=== PATIENT | female | born 1940 ===

== ENCOUNTER 2020-11-13 17:34 | Inpatient (IN) ==
[2020-11-13] MEDS ORDERED: NS 0.9% 1000 ml BAG 1,000 ML IV ONE (17:39)
[2020-11-13 18:00] LABS: ABS Eosinophils 0.2 10^3/ul (0-0.6); ABS Lymphocytes 2.9 10^3/ul (1.0-4.8); ABS Monocytes 0.6 10^3/ul (0-0.8); ABS Neutrophils 5.4 10^3/ul (1.5-7.7); Eosinophil % 1.7 %; Hematocrit 42 % (35-47); Hemoglobin 13.9 g/dL (12.0-16.0); Lymphocyte % 31.9 %; Mean Corpuscular HGB Conc 33 g/dL (31-36); Mean Corpuscular Hemoglobin 29 pg (27-31); Mean Corpuscular Volume 89 fL (80-97); Mean Platelet Volume 7.3 fL (7.4-10.4); Platelet Count 287 10^3/uL (150-450); Red Blood Count 4.76 10^6 /uL (3.70-4.87); Red Cell Distribution Width 14 % (10-15)
[2020-11-13] MEDS ORDERED: Magnesium Sulfate IV 1GM/100ML 1 GM/100 ML BAG IV ONE (18:05)
[2020-11-13 18:08] LABS: Activated Partial Thrombo Time 27.2 seconds (26.0-38.0); INR 1.12 (0.82-1.09)
[2020-11-13] MEDS ORDERED: Iodixanol (CONTRAST) 320 MG/ML 100 ML SDV IV ONE (18:09)
[2020-11-13 18:21] LABS: Troponin I 0.01 ng/mL (<0.03)
[2020-11-13 18:27] LABS: Albumin 3.8 g/dL (3.2-5.2); Albumin/Globulin Ratio 1.5 (1-3); BUN/Creatinine Ratio 18.6 (8-20); Calcium 8.9 mg/dL (8.6-10.3); EGFR African American 77.4 (>60); Globulin 2.6 g/dL (2-4); HDL Cholesterol 48.3 mg/dL; Potassium 3.8 mmol/L (3.5-5.0); Total Bilirubin 0.4 mg/dL (0.2-1.0); Total Protein 6.4 g/dL (6.4-8.9)
[2020-11-13 21:41] LABS: TSH Ultra Thyroid Stim Horm 2.52 mcIU/mL (0.34-5.60)
[2020-11-13 21:52] LABS: Folate 16.65 ng/mL (>3.99)
[2020-11-13 22:20] LABS: Urine Appearance Clear; Urine Bilirubin Negative (Negative); Urine Blood Negative (Negative); Urine Color Yellow; Urine Glucose Negative (Negative); Urine Ketones Negative (Negative); Urine Nitrite Negative (Negative); Urine Protein Negative (Negative); Urine Urobilinogen Negative (Negative)
[2020-11-13] MEDS ORDERED: Enoxaparin 40 MG/0.4 ML SYR SUBCUT SCH (23:37)
[2020-11-14] MEDS ORDERED: Mometasone/Formoter 100/5 MDI INH SCH (09:00)
[2020-11-14 19:41] VITALS: BP 153/76
== END 2020-11-14 18:09 | disposition home or self-care (01) | DRG 312 ==
LOC: ED 17:34 → MEDTELE 17:34
PROVIDERS: ADMIT Internal Medicine; ATTEND Internal Medicine

== ENCOUNTER 2020-11-14 22:27 | Inpatient (IN) ==
[2020-11-14 23:09] LABS: Hematocrit 42 % (35-47); Mean Corpuscular HGB Conc 33 g/dL (31-36); Mean Corpuscular Hemoglobin 30 pg (27-31); Mean Corpuscular Volume 89 fL (80-97); Red Blood Count 4.72 10^6 /uL (3.70-4.87); Red Cell Distribution Width 14 % (10-15); White Blood Count 9.4 10^3/uL (3.5-10.8)
[2020-11-14 23:31] LABS: Troponin I 0.03 ng/mL (<0.03)
[2020-11-14 23:33] LABS: Sodium 135 mmol/L (135-145)
[2020-11-14 23:34] LABS: BUN/Creatinine Ratio 17.3 (8-20); Blood Urea Nitrogen 14 mg/dL (6-24); CO2 Carbon Dioxide 28 mmol/L (22-32); Chloride 101 mmol/L (101-111); EGFR Non-African American 68.6 (>60); Glucose 171 mg/dL (70-100)
[2020-11-14 23:35] LABS: ALT 20 U/L (7-52); Albumin 3.9 g/dL (3.2-5.2); Albumin/Globulin Ratio 1.4 (1-3); Alkaline Phosphatase 81 U/L (34-104); C Reactive Protein 29.79 mg/L (<8.01); Calcium 8.5 mg/dL (8.6-10.3); Globulin 2.8 g/dL (2-4); Total Protein 6.7 g/dL (6.4-8.9)
[2020-11-14 23:39] LABS: Anion Gap 6 mmol/L (2-11)
[2020-11-14] MEDS ORDERED: NS 0.9% 1000 ml BAG 1,000 ML IV SCH (23:45)
[2020-11-15 01:15] LABS: AST Redraw 20 U/L (13-39); Potassium Redraw 3.9 mmol/L (3.5-5.0)
[2020-11-15 01:26] LABS: Troponin I 0.03 ng/mL (<0.03)
[2020-11-15] MEDS ORDERED: Furosemide 40 mg/4 ml IV VIAL IV SLOW PU ONE (02:18)
[2020-11-15 02:38] LABS: ABS Basophils 0.1 10^3/ul (0-0.2); ABS Eosinophils 0.2 10^3/ul (0-0.6); ABS Lymphocytes 1.7 10^3/ul (1.0-4.8); ABS Monocytes 0.5 10^3/ul (0-0.8); ABS Neutrophils 6.9 10^3/ul (1.5-7.7); Lymphocyte % 18.4 %; Nucleated Red Blood Cells % 0.1
[2020-11-15 03:01] LABS: Urine Appearance Clear; Urine Bilirubin Negative (Negative); Urine Blood 2+ (Negative); Urine Color Straw; Urine Glucose Negative (Negative); Urine Ketones Negative (Negative); Urine Nitrite Negative (Negative); Urine Protein Negative (Negative); Urine Specific Gravity 1.004 (1.010-1.030); Urine Urobilinogen Negative (Negative)
[2020-11-15 03:20] LABS: Urine Benzodiazepine Screen None Detected (None Detect); Urine Cannabinoids Screen None Detected (None Detect); Urine Opiates Screen None Detected (None Detect)
[2020-11-15 03:39] LABS: Urine Bacteria 1+ (Absent); Urine Red Blood Cell Trace(0-2/hpf) (Absent); Urine Squamous Epithelial Cell Present (Absent); Urine White Blood Cell Trace(0-5/hpf) (Absent)
[2020-11-15] MEDS: Enoxaparin 40 MG/0.4 ML SYR SUBCUT SCH (13:51)
[2020-11-16] MEDS: Mometasone/Formoter 100/5 MDI INH SCH ×2 (07:57→21:13)
[2020-11-16] MEDS: Enoxaparin 40 MG/0.4 ML SYR SUBCUT SCH (08:16)
[2020-11-17] MEDS: Mometasone/Formoter 100/5 MDI INH SCH ×2 (08:54→20:06)
[2020-11-17] MEDS: Enoxaparin 40 MG/0.4 ML SYR SUBCUT SCH (09:17)
[2020-11-17] MEDS: Nystatin TOP POWDER 15 GM BTL TOPICAL SCH (22:43)
[2020-11-18] MEDS: Mometasone/Formoter 100/5 MDI INH SCH ×2 (08:06→20:25)
[2020-11-18] MEDS: Nystatin TOP POWDER 15 GM BTL TOPICAL SCH ×3 (10:00→19:45)
[2020-11-18] MEDS: Enoxaparin 40 MG/0.4 ML SYR SUBCUT SCH (10:00)
[2020-11-19] MEDS: Mometasone/Formoter 100/5 MDI INH SCH ×2 (08:19→20:28)
[2020-11-19] MEDS: Enoxaparin 40 MG/0.4 ML SYR SUBCUT SCH (09:45)
[2020-11-19] MEDS: Nystatin TOP POWDER 15 GM BTL TOPICAL SCH ×2 (09:46→14:15)
[2020-11-20] MEDS: Nystatin TOP POWDER 15 GM BTL TOPICAL SCH ×4 (02:16→20:11)
[2020-11-20] MEDS: Mometasone/Formoter 100/5 MDI INH SCH ×2 (07:58→20:26)
[2020-11-20] MEDS: Enoxaparin 40 MG/0.4 ML SYR SUBCUT SCH (08:49)
[2020-11-20] MEDS ORDERED: Albuterol HFA INHALER 8 gm MDI INH PRN (10:24)
[2020-11-21] MEDS: Mometasone/Formoter 100/5 MDI INH SCH (07:59)
[2020-11-21] MEDS: Nystatin TOP POWDER 15 GM BTL TOPICAL SCH (09:09)
[2020-11-21] MEDS: Enoxaparin 40 MG/0.4 ML SYR SUBCUT SCH (09:09)
[2020-11-21 10:21] VITALS: BP 137/54
== END 2020-11-21 11:15 | DRG 918 ==
LOC: ED 22:27 → MED 22:27
PROVIDERS: ADMIT Hospitalist; ATTEND Internal Medicine